=== PATIENT | female | born 1950 | race Caucasian/White ===

== ENCOUNTER → 2017-09-08 | Outpatient (CLI) | payer MEDICARE ==
--- NOTE | 2017-09-09 08:37 | MM ---
Reason for exam: screening (asymptomatic). Last mammogram was performed 1 year and 2 months ago. History: Patient is postmenopausal. Took hormonal contraceptives for 7 years. Took estrogen for 1 year. Physical Findings: A clinical breast exam by your physician is recommended on an annual basis and results should be correlated with mammographic findings. MG 3D Screening Mammo W/Cad Bilateral CC and MLO view(s) were taken. Prior study comparison: July 01, 2016, bilateral MG screening mammo w CAD. June 05, 2015, bilateral MG diagnostic mammo w CAD ABBIE. The breast tissue is almost entirely fat. Finding: There are typically benign calcifications in the right breast. No significant changes in finding since July 01, 2016 and June 05, 2015. ASSESSMENT: Benign, BI-RAD 2 RECOMMENDATION: Routine screening mammogram of both breasts in 1 year.
== END | disposition home or self-care (01) ==
LOC: RADMAMWWP 09:48
PROVIDERS: ATTEND Family Medicine
DX: Z12.31 Encounter for screening mammogram for malignant neoplasm of breast (principal)
CPT/HCPCS: 77063; G0202

== ENCOUNTER 2018-05-22 11:45 | Emergency (ER) | payer MEDICARE ==
[2018-05-22 12:27] VITALS: BP 150/81; PULSE 69; RESP 18; TEMP 98.1
[2018-05-22] MEDS ORDERED: IBUPROFEN 600 MG TAB PO STA (12:57)
--- NOTE | 2018-05-22 13:34 | XR ---
EXAMINATION TYPE: XR wrist complete LT DATE OF EXAM: 05/22/2018 COMPARISON: NONE HISTORY: 67-year-old female with pain after fall yesterday TECHNIQUE: 4 views FINDINGS: There is an intra-articular fracture extending to the radiocarpal joint involving the metaphysis and epiphysis of the distal radius. Fracture lucency is seen extending into the radioscaphoid as well as the radial lunate joint. The distal radial ulnar joint appears intact. Soft tissue swelling. No signi ficant displacement or angulation. Severe degenerative changes at the base of the thumb and triscaphe joint. Corticated ossific density just beyond the ulnar styloid process could represent accessory os sicle or sequela of remote injury. IMPRESSION: 1. Nondisplaced fracture of the distal radial metaphysis and epiphysis with fracture extension into t he radiocarpal joint. No significant articular surface incongruity. 2. Severe degenerative changes at the base of the thumb.
--- NOTE | 2018-05-22 13:35 | ED ---
Fall HPI - General Chief Complaint: Fall Stated Complaint: Fall Time Seen by Provider: 05/22/18 12:47 Source: patient Mode of arrival: ambulatory - History of Present Illness Initial Comments: This is a 67-year-old female with past medical history of type 2 diabetes and hypothyroidism who presents to emergency department today for chief complaint of left wrist pain patient states that around 10 PM last night she was going down her side steps of her house going to the shed she misstepped falling forward catching herself with her left hand, she denies any chest pain, shortness of breath or palpitations prior to the fall and states that this is mechanical, or any other injury during the fall. She immediately complained of left wrist pain. The pain was localized to the left wrist, constant and sharp in nature without radiation. Pt denied numbness, tingling or loss of sensation or obvious deformity. Patient states that in addition there was minimal swelling. She applied ice the area and took Motrin for pain management. She thought that the pain would go away in the morning but when patient woke up this morning with constant pain in her left wrist she had her bring her to the emergency department. Upon arrival patient's vital signs were within normal limits. 2 through 5. A full sensation of the left hand wrist. - Related Data Home Medications Medication Instructions Recorded Confirmed Aspirin 1 tab PO DAILY 04/17/14 11/06/14 Carvedilol 25 mg PO DAILY 04/17/14 11/06/14 Carvedilol [Coreg] 25 mg PO BID 04/17/14 11/06/14 Cholecalciferol [Vitamin D3] 1 tab PO DAILY 04/17/14 11/06/14 Levothyroxine Sodium [Synthroid] 1 mg PO DAILY 04/17/14 11/06/14 Losartan/Hydrochlorothiazide 1 each PO DAILY 04/17/14 11/06/14 [Hyzaar 100-12.5 Tablet] Simvastatin [Zocor] 40 mg PO HS 04/17/14 11/06/14 glipiZIDE XL [Glucotrol XL] 5 mg PO DAILY 04/17/14 11/06/14 metFORMIN HCL [Glucophage] 1,000 mg PO BID 04/17/14 11/06/14 Previous Rx's Medication Instructions Recorded Docusate [Colace] 100 mg PO DAILY #30 capsule 11/06/14 Hydrocodone/Acetaminophen [Hagerman 1 each PO Q4HR PRN #20 tablet 11/06/14 10-325 Tablet] Ibuprofen 600 mg PO Q6H 5 Days #20 tablet 05/22/18 Allergies Allergy/AdvReac Type Severity Reaction Status Date / Time Penicillins Allergy Rash/Hives Verified 05/22/18 12:27 Review of Systems ROS Statement: Those systems with pertinent positive or pertinent negative responses have been documented in the HPI. ROS Other: All systems not noted in ROS Statement are negative. Past Medical History Past Medical History: Diabetes Mellitus History of Any Multi-Drug Resistant Organisms: None Reported Past Surgical History: Orthopedic Surgery Past Psychological History: No Psychological Hx Reported Smoking Status: Former smoker Past Alcohol Use History: Occasional Past Drug Use History: None Reported General Exam - General Exam Comments Initial Comments: General: The patient is awake and alert, in no distress, and does not appear acutely ill. Neck: The neck is supple, there is no tenderness or JVD. Cardiovascular: There is a regular rate and rhythm. No murmur, rub or gallop is appreciated. Respiratory: Lungs are clear to auscultation, respirations are non-labored, breath sounds are equal. No wheezes, stridor, rales, or rhonchi. Musculoskeletal: inspection of the left wrist reveals no swelling, no obvious defect or erythema. Tenderness to patient over the carpals of left hand. Patient unable to flex, extend, pronate, supinate the left wrist. Full range of motion of the fingers full range of motion to the elbow and shoulder on the left side. Full sensation of the left upper extremity. Able to make the okay sign, fingers crossed and transpose thumb to the remaining phalanges. +2 radial pulses b/l. Capillary refill <2seconds. Neurological: A&O x 3. CN II-XII intact, There are no obvious motor or sensory deficits. Coordination appears grossly intact. Speech is normal. Skin: Skin is warm and dry and no rashes or lesions are noted. Psychiatric: Normal mood and affect. Limitations: no limitations Course Vital Signs 05/22/18 12:24 Temperature 98.1 F Pulse Rate 69 Respiratory 18 Rate Blood Pressure 150/81 O2 Sat by Pulse 96 Oximetry Procedures - Orthopedic Splinting/Casting Injury #1 Upper Extremity Injury Location: wrist Upper Extremity Immobilizer: wrist splint, Murphy wrap, synthetic pre-padded splint Other Orthopedic Equipment: other (Sling) Medical Decision Making - Medical Decision Making Patient is a 67-year-old female with past medical history of type 2 diabetes and hypothyroidism who presents today for chief complaint wrist pain after falling last night around 10 PM. Patient was walking down the side effects were home when she tripped over the last 2 steps falling on her left outstretched hand. Patient denies hitting her head, loss of consciousness or trauma to any other part of the body. Patient denies any chest pain dizziness confusion or palpitations prior to falling down stairs and states that this is mechanical fall. Patient didn't think that she "broke her wrist due to minimal swelling at that time, she attempted to take Motrin for pain management and ice the wrist. When she woke up this morning and the pain was still constant localized to the left wrist and there was some swelling she had her take her to emergency Department. Upon arrival to emergency department patient' s vital signs are stable. Initial physical exam was performed left wrist there is some mild swelling, no ecchymosis or erythema overlying the joint. No abrasions or lesions. There is tenderness to the patient over the carpal joint. Patient is unable to pronate and supinate flex or extend the left wrist. Full range of motion of the left elbow shoulder and fingers. Cap refill less than 2 seconds of the upper extremities bilaterally, +2 radial pulses bilaterally. Sensation intact of the upper extremities bilaterally. Ulnar, radial, median nerve intact of the upper extremities bilaterally. X-ray of the left wrist was obtained. Revealing a nondisplaced fracture of the distal metaphysis and epiphysis of the radius with fracture extending into the radiocarpal joint. The patient was put into a splint, and given ibuprofen 600 for pain management. Neurovascular exam unchanged post splinting. Patient was given sling. I discussed the case with who agreed with the plan of discharging patient with a prescription for ibuprofen 600 every 6 hours for pain as needed as well as [facility] within 1-2 days. Patient was instructed to return to emergency department if symptoms worsen. Disposition Clinical Impression: Distal radius fracture, left Disposition: HOME SELF-CARE Condition: Good Instructions: Wrist Fracture in Adults (ED) Additional Instructions: Please use medication as discussed. Please [facility]-up with [facility] in the next 1-2 days. Please return to emergency room if the symptoms increase or worsen or for any other concerns. Prescriptions: Ibuprofen 600 mg PO Q6H 5 Days #20 tablet Is patient prescribed a controlled substance at d/c from ED?: No Referrals: Donna Choi MD [Primary Care Provider] - 1-2 days Cara Nam PAC [PHYSICIAN FRUIT COORDINATOR] - 1-2 days Time of Disposition: 14:08
== END 2018-05-22 14:17 | disposition home or self-care (01) ==
LOC: EC 11:45
DX: S52.592A Other fractures of lower end of left radius, initial encounter for closed fracture (principal); E11.9 Type 2 diabetes mellitus without complications; E03.9 Hypothyroidism, unspecified; Z87.891 Personal history of nicotine dependence; Z79.82 Long term (current) use of aspirin; Z79.84 Long term (current) use of oral hypoglycemic drugs; Z79.899 Other long term (current) drug therapy; Z88.0 Allergy status to penicillin; W10.9XXA Fall (on) (from) unspecified stairs and steps, initial encounter; Y93.01 Activity, walking, marching and hiking; Y92.009 Unspecified place in unspecified non-institutional (private) residence as the place of occurrence of the external cause
CPT/HCPCS: 29125; 99283

== ENCOUNTER → 2018-06-09 | Outpatient (CLI) | payer MEDICARE ==
--- NOTE | 2018-06-09 10:30 | BD ---
EXAMINATION TYPE: Axial Bone Density DATE OF EXAM: 06/09/2018 COMPARISON: NONE CLINICAL HISTORY: screening Height: 5'6 1/2 Weight: 210 FRAX RISK QUESTIONS: History of Fracture in Adulthood: y Secondary Osteoporosis: RISK FACTORS HISTORY OF: History of Wrist Fracture: left When: 2018 Diet low in dairy products/other sources of calcium: y Postmenopausal woman: y MEDICATIONS: Thyroid Medications: Which medication: Synthroid How Lon years Additional Medications: cholesterol, blood pressure, type 2 diabetes Additional History: radioactive iodine to thyroid 15 years ago hypothyroid EXAM MEASUREMENTS: Bone mineral densitometry was performed using the [employer] System. Bone mineral density as measured about the Lumbar spine is: ----- L1-L4(G/cm2): 1.111 T Score Values are as follows: ----- L2: -1.9 ----- L3: 0.5 ----- L4: 0.1 ----- L1-L4: -0.6 Bone mineral density about the R hip (g/cm2): 0.822 Bone mineral density about the L hip (g/cm2): 0.935 T Score values are as follows: -----R Neck: -1.6 -----L Neck: -0.7 -----R Total: -0.2 -----L Total: -0.2 IMPRESSION: Osteopenia (T Score between -2.5 and -1) at the femoral neck level in right hip and at 2 consecutive levels in the upper lumbar spine. There is slightly increased risk of fracture and the patient may be considered for treatment. Re-Screen 2-5 years. NOTE: T-SCORE=SD OF THE YOUNG ADULT MEAN.
== END ==
LOC: RADBDWWP 09:14
PROVIDERS: ATTEND Family Medicine
DX: M85.851 Other specified disorders of bone density and structure, right thigh (principal); M85.88 Other specified disorders of bone density and structure, other site
CPT/HCPCS: 77080

== ENCOUNTER → 2018-09-24 | Outpatient (CLI) | payer MEDICARE ==
--- NOTE | 2018-09-25 14:17 | MM ---
Reason for exam: screening (asymptomatic). Last mammogram was performed 1 year and 1 month ago. History: Patient is postmenopausal. Took hormonal contraceptives for 7 years. Took estrogen for 1 year. Physical Findings: A clinical breast exam by your physician is recommended on an annual basis and results should be correlated with mammographic findings. MG 3D Screening Mammo W/Cad Bilateral CC and MLO view(s) were taken. Prior study comparison: September 08, 2017, bilateral MG 3d screening mammo w/cad. July 01, 2016, bilateral MG screening mammo w CAD. The breast tissue is almost entirely fat. No significant changes when compared with prior studies. ASSESSMENT: Benign, BI-RAD 2 RECOMMENDATION: Routine screening mammogram of both breasts in 1 year.
== END | disposition home or self-care (01) ==
LOC: RADMAMWWP 10:45
PROVIDERS: ATTEND Family Medicine
DX: Z12.31 Encounter for screening mammogram for malignant neoplasm of breast (principal)
CPT/HCPCS: 77063; 77067

== ENCOUNTER → 2019-12-01 | Outpatient (CLI) | payer MEDICARE ==
--- NOTE | 2019-12-02 11:17 | MM ---
Reason for exam: screening (asymptomatic). Last mammogram was performed 1 year and 2 months ago. History: Patient is postmenopausal. Took hormonal contraceptives for 7 years. Took estrogen for 1 year. Physical Findings: A clinical breast exam by your physician is recommended on an annual basis and results should be correlated with mammographic findings. MG 3D Screening Mammo W/Cad Bilateral CC and MLO view(s) were taken. Prior study comparison: September 24, 2018, bilateral MG 3d screening mammo w/cad. September 08, 2017, bilateral MG 3d screening mammo w/cad. There are scattered fibroglandular densities. Benign appearing calcifications in the right breast. There is no discrete abnormality. No significant changes when compared with prior studies. ASSESSMENT: Benign, BI-RAD 2 RECOMMENDATION: Routine screening mammogram of both breasts in 1 year.
== END | disposition home or self-care (01) ==
LOC: RADMAMWWP 13:17
PROVIDERS: ATTEND Family Medicine
DX: Z12.31 Encounter for screening mammogram for malignant neoplasm of breast (principal)
CPT/HCPCS: 77063; 77067

== ENCOUNTER 2020-01-24 07:28 | Day surgery (SDC) | payer MEDICARE ==
[2020-01-19 11:33] VITALS: BMI 31.3
[~2020-01-24 07:28] MED LIST: LACTATED RINGERS 1,000 ML IV SCH; LIDOCAINE 1% (10MG/ML) FOR IV START INTRADERMA PRN
[2020-01-24 07:40] VITALS: TEMP 96.4
[2020-01-24 07:54] LABS: Glucose,Whole Blood 183 mg/dL (75-99)
[2020-01-24] MEDS ORDERED: LIDOCAINE 1% (10MG/ML) FOR IV START INTRADERMA ONE (07:55)
[2020-01-24] MEDS ORDERED: PROPOFOL 10 MG/ML 20 ML VIAL IV ONE (08:12)
--- NOTE | 2020-01-24 08:49 | P.PCN ---
Date of Procedure: 01/24/20 Description of Procedure: BRIEF HISTORY: Patient is a 69-year-old female presenting for outpatient colonoscopy for screening for malignant neoplasm of the colon. She denies any change in bowel habits, blood per rectum, or abdominal pain. Last colonoscopy 6-7 years ago per her recollection. PROCEDURE PERFORMED: Colonoscopy with polypectomy. PREOPERATIVE DIAGNOSIS: Screening for malignant neoplasm of the colon, last colonoscopy 6-7 years ago per her recollection, she does report a prior history of colon polyps. ESTIMATED BLOOD LOSS: Minimal. IV sedation per Anesthesia. PROCEDURE: After informed consent was obtained, the patient, was brought into the endoscopy unit. IV sedation was administered by Anesthesia under continuous monitoring. Digital rectal examination was normal, with nonthrombosed external hemorrhoids noted. Initially the Olympus CF-190 flexible video colonoscope was then inserted in the rectum, gradually advanced into the cecum without any difficulty. Careful examination was performed as the scope was gradually being withdrawn. Ileocecal valve and the appendiceal orifice were visualized and appeared normal. Prep was excellent. Mucosa of the cecum, ascending colon, transverse colon, descending colon, sigmoid colon, and rectum appeared normal. Multiple small mouth diverticula noted in the sigmoid colon. Diminutive 2 mm ascending colon polyp removed with cold forcep polypectomy. Diminutive 2 mm sigmoid colon polyp removed with cold forcep polypectomy. Retroflexion was performed in the rectum and no lesions were seen, low-grade internal hemorrhoids noted. The patient tolerated the procedure well. IMPRESSION: 2 diminutive polyps removed from the sigmoid colon and descending colon with cold forcep polypectomy. Mild sigmoid diverticulosis. RECOMMENDATIONS: Findings of this examination were discussed with the patient and her . Okay to resume diet. Okay to resume medications. Await pathology from polypectomies. Would recommend repeat colonoscopy in 7 years for colon polyps pending pathology from polypectomies.
[2020-01-24 08:53] VITALS: PULSE 70; RESP 16
[2020-01-24 09:05] VITALS: BP 145/92
== END 2020-01-24 09:30 | disposition home or self-care (01) ==
LOC: ORWHC2ENDO 07:28
PROVIDERS: ATTEND Internal Medicine
DX: Z12.11 Encounter for screening for malignant neoplasm of colon (principal); D12.2 Benign neoplasm of ascending colon; K63.5 Polyp of colon; K57.30 Diverticulosis of large intestine without perforation or abscess without bleeding; K64.4 Residual hemorrhoidal skin tags; K64.8 Other hemorrhoids; I10 Essential (primary) hypertension; E11.9 Type 2 diabetes mellitus without complications; K21.9 Gastro-esophageal reflux disease without esophagitis; Z88.0 Allergy status to penicillin; Z79.84 Long term (current) use of oral hypoglycemic drugs; Z79.890 Hormone replacement therapy; Z79.899 Other long term (current) drug therapy; Z86.010 Personal history of colon polyps; Z87.891 Personal history of nicotine dependence; Z98.51 Tubal ligation status; Z98.890 Other specified postprocedural states
CPT/HCPCS: 88305; 45380; J2704

== ENCOUNTER → 2020-07-07 | Outpatient (CLI) | payer MEDICARE ==
--- NOTE | 2020-07-07 11:57 | ECHOF ---
Referral Reason:I10 Hypertension MEASUREMENTS -------- HEIGHT: 165.1 cm WEIGHT: 93.0 kg BP: RVIDd: 1.8 cm (< 3.3) IVSd: 1.1 cm (0.6 - 1.1) LVIDd: 3.5 cm (3.9 - 5.3) LVPWd: 1.3 cm (0.6 - 1.1) IVSs: 1.6 cm LVIDs: 2.1 cm LVPWs: 1.6 cm Ao Diam: 3.0 cm (2.0 - 3.7) AV Cusp: 2.0 cm (1.5 - 2.6) LA Diam: 3.0 cm (2.7 - 3.8) MV EXCURSION: 17.007 mm (> 18.000) MV EF SLOPE: 60 mm/s (70 - 150) EPSS: 1.0 cm MV E [place]: 0.56 m/s MV DecT: 187 ms MV A [place]: 1.05 m/s MV E/A Ratio: 0.54 RAP: 5.00 mmHg RVSP: 12.23 mmHg FINDINGS -------- This was a technically good study. The left ventricular size is normal. Left ventricular wall thickness is normal. Overall left vent ricular systolic function is normal with, an EF between 55 - 60 %. The diastolic filling pattern is normal for the age of the patient 12.55. The right ventricle is normal in size. The left atrial size is normal. The right atrial size is normal. Interatrial and interventricular septum intact. The aortic valve is trileaflet and appears structurally normal. The mitral valve is normal. There is trace mitral regurgitation. The tricuspid valve appears structurally normal. Trace tricuspid regurgitation present. Right sarah tricular systolic pressure is normal at < 35 mmHg. There is no pulmonic regurgitation present. The aortic root size is normal. Normal inferior vena cava with normal inspiratory collapse consistent with estimated right atrial pre ssure of 5 mmHg. There is no pericardial effusion. CONCLUSIONS -------- 1. The left ventricular size is normal. 2. Left ventricular wall thickness is normal. 3. Overall left ventricular systolic function is normal with, an EF between 55 - 60 %. 4. The diastolic filling pattern is normal for the age of the patient 12.55 5. There is trace mitral regurgitation. 6. Trace tricuspid regurgitation present. WATER RESOURCE CONSULTANT: Cary Ballard RDCS
--- NOTE | 2020-07-07 18:42 | BD ---
EXAMINATION TYPE: Axial Bone Density DATE OF EXAM: 07/07/2020 COMPARISON: 06.09.2018 CLINICAL HISTORY: 69 YR OLD FEMALE ......ICD-10 CODE: M85.9 DISORDER OF BONE Height: 64.6 Weight: 205 FRAX RISK QUESTIONS: History of Fracture in Adulthood: YES RISK FACTORS HISTORY OF: HX OF LT ANKLE FRACTURE AFTER AGE 51 History of Wrist Fracture: LT WRIST 2 YRS AGO Postmenopausal woman: YES AT AGE 51 Lost more than 2 inches in height since high school: YES Hyperparathyroidism: NO Adrenal Insufficiency: NO MEDICATIONS: Thyroid Medications: YES, SYNTHROID FOR ABOUT 15+ YRS Additional Medications: BP MEDS, METFORMIN, REFLUX, STATIN FOR CHOLESTEROL, VIT D Additional History: HYPERTENSION, REFLUX, CHOLESTEROL, DIABETIC, OSTEOARTHRITIS EXAM MEASUREMENTS: Bone mineral densitometry was performed using the [employer] System. Bone mineral density as measured about the Lumbar spine is: ----- L1-L4(G/cm2): 1.157 T Score Values are as follows: ----- L1: -1.3 ----- L2: -1.1 ----- L3: 0.3 ----- L4: 0.9 ----- L1-L4: -0.2 Bone mineral density has: Increased 4.6% SINCE 06.09.2018 STUDY Bone mineral density about the R hip (g/cm2): 0.948 Bone mineral density about the L hip (g/cm2): 1.010 T Score values are as follows: -----R Neck: -1.2 -----L Neck: -1.1 -----R Total: -0.5 -----L Total: 0.0 Bone mineral density has: Decreased -0.4% SINCE 06.09.2018 STUDY FRAX%s: THERE IS A 13.8% CHANCE FOR A MAJOR OSTEOPOROTIC FX AND A 1.4% FOR HIP.....PROBABILITY FOR FX IN 10YRS TIME IMPRESSION: Osteopenia (T Score between -2.5 and -1). There is slightly increased risk of fracture and the patient may be considered for treatment. Re-Screen 2-5 years. NOTE: T-SCORE=SD OF THE YOUNG ADULT MEAN.
== END | disposition home or self-care (01) ==
LOC: RADBDWWP 09:47
PROVIDERS: ATTEND Family Medicine
DX: M85.80 Other specified disorders of bone density and structure, unspecified site (principal); I10 Essential (primary) hypertension; E11.9 Type 2 diabetes mellitus without complications; I08.1 Rheumatic disorders of both mitral and tricuspid valves; Z72.0 Tobacco use
CPT/HCPCS: 77080; 93306

== ENCOUNTER 2020-10-20 15:34 | Emergency (ER) | payer MEDICARE ==
[2020-10-20 15:45] VITALS: RESP 18
[2020-10-20 16:14] LABS: Basophils # (A) 0.1 k/uL (0-0.2); Basophils % (A) 1 %; Eosinophils % (A) 0 %; HCT 39.7 % (34.0-46.0); HGB 13.5 gm/dL (11.4-16.0); Lymphocytes # (A) 0.9 k/uL (1.0-4.8); Lymphocytes % (A) 15 %; MCH 29.2 pg (25.0-35.0); MCHC 34.1 g/dL (31.0-37.0); MCV 85.7 fL (80.0-100.0); Mean Platelet Volume 7.9; Monocytes # (A) 0.3 k/uL (0-1.0); Monocytes % (A) 5 %; Neutrophils # (A) 4.8 k/uL (1.3-7.7); Neutrophils % (A) 78 %; Platelet Count 188 k/uL (150-450); RBC 4.64 m/uL (3.80-5.40); RDW 12.8 % (11.5-15.5); WBC 6.2 k/uL (3.8-10.6)
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
[2020-10-20 16:27] LABS: Ionized Calcium 4.7 mg/dL (4.5-5.3)
[2020-10-20 16:34] LABS: Albumin 3.8 g/dL (3.5-5.0); INR 0.9 (<1.2); Partial Thromboplastin Time 22.7 sec (22.0-30.0); Potassium 4.6 mmol/L (3.5-5.1); Prothrombin Time 9.6 sec (9.0-12.0); Total Bilirubin 0.8 mg/dL (0.2-1.3); Total Protein 7.1 g/dL (6.3-8.2)
--- NOTE | 2020-10-20 16:53 | XR ---
EXAMINATION TYPE: XR chest 1V portable DATE OF EXAM: 10/20/2020 COMPARISON: 04/17/2014 HISTORY: Short of breath TECHNIQUE: FINDINGS: There is some mild infiltrate and atelectasis at the left lung base. There is no heart fail ure. Heart size is normal. There are no hilar masses. Heart is shifted slightly to the left side. Bon y thorax is intact. IMPRESSION: There is some mild infiltrate and atelectasis at the left lung base that is new compared to old exam. Normal heart.
[2020-10-20 17:31] VITALS: BP 111/60; PULSE 76; TEMP 98.3
== END 2020-10-20 17:35 | disposition home or self-care (01) ==
LOC: EC 15:34
DX: U07.1 COVID-19 (principal); E11.9 Type 2 diabetes mellitus without complications; I10 Essential (primary) hypertension; E07.9 Disorder of thyroid, unspecified; E78.5 Hyperlipidemia, unspecified; J98.11 Atelectasis; K21.9 Gastro-esophageal reflux disease without esophagitis; Z79.82 Long term (current) use of aspirin; Z79.02 Long term (current) use of antithrombotics/antiplatelets; Z79.890 Hormone replacement therapy; Z79.84 Long term (current) use of oral hypoglycemic drugs; Z79.899 Other long term (current) drug therapy; Z88.0 Allergy status to penicillin
CPT/HCPCS: 36415; 71045; 80053; 82330; 83605; 83880; 84484; 85025; 85610; 85730; 87635; 99285

== ENCOUNTER 2020-11-04 17:08 | Emergency (ER) | payer MEDICARE ==
[2020-11-04 17:13] VITALS: RESP 16; TEMP 97.8
[2020-11-04] MEDS ORDERED: LIDOCAINE 1% INJ 10MG/ML (20 ML MDV) SQ ONE (17:27)
[2020-11-04] MEDS ORDERED: DIPH,PERTUS(ACELL)TETVAC-LF 0.5 ML VIAL IM ONE (17:27)
[2020-11-04] MEDS ORDERED: ACET/COD 300 MG/30 MG STARTER PACK 6 TAB BTL PO STA (17:28)
--- NOTE | 2020-11-04 18:01 | XR ---
RESULT: HISTORY: fall, anterior pain TECHNIQUE: 3 views of the left knee were obtained. COMPARISON: None. FINDINGS: There is no acute fracture or dislocation. There is mild tricompartmental osteoarthritis. No knee natasha nt effusion. IMPRESSION: No acute osseous abnormality.
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
[2020-11-04] MEDS ORDERED: BACITRACIN OINT 1 EACH PACKET TOPICAL ONE (18:18)
[2020-11-04] MEDS ORDERED: CEPHALEXIN 500MG STARTER PACK 4 CAP BTL PO STA (18:19)
[2020-11-04 18:48] VITALS: BP 105/67; PULSE 87
== END 2020-11-04 18:48 | disposition home or self-care (01) ==
LOC: EC 17:08
DX: S61.411A Laceration without foreign body of right hand, initial encounter (principal); S80.02XA Contusion of left knee, initial encounter; M25.522 Pain in left elbow; E11.9 Type 2 diabetes mellitus without complications; K21.9 Gastro-esophageal reflux disease without esophagitis; E78.5 Hyperlipidemia, unspecified; I10 Essential (primary) hypertension; E07.9 Disorder of thyroid, unspecified; Z79.84 Long term (current) use of oral hypoglycemic drugs; Z79.82 Long term (current) use of aspirin; Z79.899 Other long term (current) drug therapy; Z79.890 Hormone replacement therapy; Z88.0 Allergy status to penicillin; W26.8XXA Contact with other sharp object(s), not elsewhere classified, initial encounter
CPT/HCPCS: 73562; 90715; 90471; 12001; 99283; J2001

== ENCOUNTER → 2021-02-12 | Outpatient (CLI) | payer MEDICARE ==
[2021-02-12 19:46] LABS: Hemoglobin A1C 6.8 % (4.0-6.0)
[2021-02-12 20:44] LABS: African American GFR (CKD) 102.5 (60.0-200.0); Albumin 4.4 g/dL (3.80-4.90); Albumin/Globulin Ratio 1.91 (1.60-3.17); Anion Gap 11.6 mmol/L (4.00-12.00); BUN/Creat Ratio 17.14 Ratio (12.00-20.00); Calcium 9.3 mg/dL (8.7-10.3); Carbon Dioxide 26.4 mmol/L (21.6-31.8); Chol/HDL Ratio 3.95; Globulin 2.3 g/dL (1.6-3.3); LDL Cholesterol,Calculated 103.6 mg/dL (0.0-131.0); Non-African American GFR(CKD) 88.4 (60.0-200.0); Potassium 4.5 mmol/L (3.5-5.5); Total Bilirubin 0.5 mg/dL (0.3-1.2); Total Protein 6.7 g/dL (6.2-8.2); VLDL Calculation 23.4 mg/dL (5.00-40.00)
[2021-02-13 03:35] LABS: Urine Creatinine 48.6 mg/dL
== END | disposition home or self-care (01) ==
LOC: LABWHC1 12:18
PROVIDERS: ATTEND Internal Medicine Endocrinology, Diabetes & Metabolism
DX: E11.9 Type 2 diabetes mellitus without complications (principal)
CPT/HCPCS: 36415; 80053; 80061; 82043; 82570; 83036; 84443

== ENCOUNTER → 2021-10-09 | Outpatient (CLI) | payer MEDICARE ==
--- NOTE | 2021-10-10 11:09 | MM ---
Reason for exam: screening (asymptomatic). Last mammogram was performed 1 year and 10 months ago. History: Patient is postmenopausal. Took hormonal contraceptives for 7 years. Took estrogen for 1 year. Physical Findings: A clinical breast exam by your physician is recommended on an annual basis and results should be correlated with mammographic findings. MG 3D Screening Mammo W/Cad Bilateral CC and MLO view(s) were taken. Prior study comparison: December 01, 2019, bilateral MG 3d screening mammo w/cad. September 24, 2018, bilateral MG 3d screening mammo w/cad. There are scattered fibroglandular densities. There are benign appearing round dystrophic calcifications bilaterally. There is chronic nodularity in the right breast. There is no discrete abnormality. ASSESSMENT: Benign, BI-RAD 2 RECOMMENDATION: Routine screening mammogram of both breasts in 1 year.
== END | disposition home or self-care (01) ==
LOC: RADMAMWWP 10:51
PROVIDERS: ATTEND Family Medicine
DX: Z12.31 Encounter for screening mammogram for malignant neoplasm of breast (principal)
CPT/HCPCS: 77063; 77067

== ENCOUNTER → 2023-10-10 | Outpatient (CLI) | payer MEDICARE ==
--- NOTE | 2023-10-10 13:33 | BD ---
EXAMINATION TYPE: Axial Bone Density DATE OF EXAM: 10/10/2023 CLINICAL HISTORY: 73 years old Female. ICD-10 CODE: Z780 [place] Height: 65.25 Weight: 189 FRAX RISK QUESTIONS: Family History (Parent hip fracture): no History of Fracture in Adulthood: yes , lt wrist @69 lt ankle @51 Secondary Osteoporosis: no Rheumatoid Arthritis: no RISK FACTORS HISTORY OF: History of Wrist Fracture: yes, lt When: @69 Family History of Osteoporosis: no Active: yes Diet low in dairy products/other sources of calcium: yes Postmenopausal woman: yes, 51 Lost more than 2 inches in height since high school: yes was 69 Frequent falls: no Poor Health: no MEDICATIONS: Thyroid Medications: yes Which medication: Synthroid How Lon+ years Additional Medications: yes hbp meds, diabetic meds, thyroid med, reflux meds EXAM MEASUREMENTS: Bone mineral densitometry was performed using the M2M Solution System. Bone mineral density as measured about the Lumbar spine is: ----- L1-L4(G/cm2): 1.121 T Score Values are as follows: ----- L1: -1.2 ----- L2: -1.7 ----- L3: 0.7 ----- L4: -0.2 ----- L1-L4: -0.5 Z Score Values are as follows: ----- L1: -0.2 ----- L2: -0.7 ----- L3: 1.7 ----- L4: 0.8 ----- L1-L4: 0.5 Bone mineral density has: Decreased -3.1% since study of: 07/07/2020 Bone mineral density about the R hip (g/cm2): 0.927 Bone mineral density about the L hip (g/cm2): 0.928 T Score values are as follows: -----R Neck: -1.6 -----L Neck: -1.2 -----R Total: -0.6 -----L Total: -0.6 Z Score values are as follows: -----R Neck: -0.3 -----L Neck: 0.2 -----R Total: 0.4 -----L Total: 0.4 Bone mineral density has: Decreased -5.3% since study of: 07/07/2020 FRAX%s: The graph provided illustrates a 16.4% chance for a major osteoporotic fx and a 2.7% chance f or the hips probability for fx in 10 years time. IMPRESSION: Osteopenia (T Score between -2.5 and -1). There is slightly increased risk of fracture and the patient may be considered for treatment. Re-Screen 2-5 years. NOTE: T-SCORE=SD OF THE YOUNG ADULT MEAN.
--- NOTE | 2023-10-13 08:45 | MM ---
Reason for Exam: Screening (asymptomatic). Last mammogram was performed 2 year(s) and 0 month(s) ago. Patient History: Menarche at age 14. First Full-Term at age 19. Postmenopausal. Patient used Estrogen for 1 year. Patient used Hormonal Contraceptives for 7 years. Daughter had breast cancer at or over age 50. Risk Values: Meli 5 year model risk: 3.3%. NCI Lifetime model risk: 8.4%. Prior Study Comparison: 09/24/2018 Bilateral Screening Mammogram, [facility]. 12/01/2019 Bilateral Screening Mammogram, [facility]. 10/09/2021 Bilateral Screening Mammogram, [facility]. Tissue Density: The breast tissue is almost entirely fat. Findings: Analyzed By CAD. There is no suspicious group of microcalcifications or new suspicious mass in either breast. Overall Assessment: Negative, BI-RAD 1 Management: Screening Mammogram of both breasts in 1 year. . Patient should continue monthly self-breast exams. A clinical breast exam by your physician is recommended on an annual basis. This exam should not preclude additional follow-up of suspicious palpable abnormalities. Note on Meli scores and lifetime risk: 1. A Meli score greater than 3% is considered moderate risk. If this is the case, consider specialist referral to assess eligibility for a risk reducing agent. 2. If overall lifetime risk for the development of breast cancer is 20% or higher, the patient may qualify for future screening with alternating mammogram and breast MRI. Electronically signed and approved by: Santino Juarez M.D. Radiologis
== END | disposition home or self-care (01) ==
LOC: RADMAMWWP 10:05
PROVIDERS: ATTEND Family Medicine
DX: Z12.31 Encounter for screening mammogram for malignant neoplasm of breast (principal); M85.89 Other specified disorders of bone density and structure, multiple sites; Z78.0 Asymptomatic menopausal state; Z80.3 Family history of malignant neoplasm of breast
CPT/HCPCS: 77063; 77067; 77080

== ENCOUNTER → 2024-02-27 | Outpatient (CLI) | payer MEDICARE ==
--- NOTE | 2024-03-01 09:50 | MR ---
EXAMINATION TYPE: MR cervical spine wo con DATE OF EXAM: 02/27/2024 11:37 AM CLINICAL INDICATION:Female, 73 years old with history of M54.2 M79.601 M54.12; PHH, Neck pain, headac hes, RUE weakness. COMPARISON: None. TECHNIQUE: Multi planar, multi sequence imaging was performed utilizing: T1-weighted, T2-weighted, an d turbo inversion recovery imaging of the cervical spine. IV Contrast: cc (none if empty) FINDINGS: Alignment: The cervical vertebral bodies have preserved heights. Slight grade 1 anterolisthesis of C3 on C4. Bones: Bone signal is within normal limits. No abnormal bone marrow edema on inversion recovery seque nces. Cord: The spinal cord is unremarkable with regards to their signal intensity and morphology. Discs: Intervertebral disc signal is maintained. C2-C3: A disc osteophyte complex is present which minimally narrows the ventral subarachnoid space. Bilateral facet and uncovertebral joint arthropathy are present with mild bilateral neural foraminal stenosis. C3-C4: A disc osteophyte complex is present which minimally narrows the ventral subarachnoid space. Bilateral facet and uncovertebral joint arthropathy are present with mild to moderate right and mild left neural foraminal stenosis. C4-C5: A disc osteophyte complex is present with mild spinal canal stenosis. Bilateral facet and unc overtebral joint arthropathy are present with moderate bilateral neural foraminal stenosis. C5-C6: No significant disc pathology. The spinal canal is patent. Bilateral facet and uncovertebral joint arthropathy are present with moderate right and mild left neural foraminal stenosis. C6-C7: No significant disc pathology. The spinal canal is patent. Bilateral facet and uncovertebral joint arthropathy are present with mild to moderate bilateral neural foraminal stenosis. C7-T1: No significant disc pathology. The spinal canal is patent. No neural foraminal stenosis. Other: None. IMPRESSION: 1. No evidence for disc herniation or significant spinal canal stenosis. 2. Spinal canal stenosis worse at C4-C5 with mild Spinal canal stenosis. 3. Multilevel disc degeneration with associated osteoarthritic changes. Neural foraminal stenosis wor se at C4-C5 with moderate bilateral, , C5-C6 moderate right and C6-C7 with moderate bilateral neural foraminal stenosis. 4. Grade 1 anterolisthesis of C3 on C4.
== END | disposition home or self-care (01) ==
LOC: RADMRIMAIN 10:27
PROVIDERS: ATTEND Family Medicine
DX: M79.601 Pain in right arm (principal); M50.30 Other cervical disc degeneration, unspecified cervical region; M99.71 Connective tissue and disc stenosis of intervertebral foramina of cervical region; M54.12 Radiculopathy, cervical region; M43.12 Spondylolisthesis, cervical region
CPT/HCPCS: 72141

== ENCOUNTER → 2024-06-10 | Outpatient (CLI) | payer MEDICARE ==
[2024-06-10 12:41] VITALS: BP 121/68; PULSE 69; RESP 16
--- NOTE | 2024-06-10 14:16 | P.PAINPG ---
PQRS Measure Charge Sheet Comment: HISTORY OF PRESENT ILLNESS: A 73 yr old female w at side as a referral from [facility] presents today w severe and chronic neck pain > 6 mo secondary to DDD, spondylosis and facet arthropathy without myelopathy for evaluation. Pt states pain level is provoked at 6 /10 in intensity, constant, localized in the R lower cervical spine, predominantly axial, sharp in character w occasional shooting pain towards the R shoulder. Pain is provoked by any movement and PT x 1-2 wks in "a few months ago" which provoked pain. Pain is alleviated slightly by physician guided home stretches daily since Spring 2023, heat, medications (Celebrex), repositioning and rest . Cervical disability score at 26. PMH: OA, Diabetes Mellitus, GERD, Hyperlipidemia, HTN, Hypothyroidism PSH: Colonoscopy (2019), Tubal Ligation, R Thumb Surgery, R Eye Muscle Reattachment SH: Never smoker, Occasional ETOH use, No illicit drug use FH: Bro- [place] All: See list Meds: See list REVIEW OF ORGAN SYSTEMS: CONSTITUTIONAL: No fevers or chills. No recent weight loss. NEUROLOGICAL: + numbness and tingling along the distal extremities. No seizure disorders or headaches. MUSCULOSKELETAL: + pain PSYCHIATRIC: Denies current depression or suicidal thoughts. Physical Examinations : Constitutional : Cooperative , not in acute distress . Neurologic : Cranial nerve II to XII intact. No focal neurological deficits. Psychiatric : alert & oriented x 3. Matching mood & appropriate affect. Judgment & insight intact. Musculoskeletal : Cervical Spine Motor strength in the deltoid and biceps: Normal right side. Normal Left side Motor strength biceps and the wrist extensors: Normal right side . Normal left side Motor strength in the triceps muscle: Normal right side. Normal left side Deep tendon reflexes: Normal at the biceps. Normal at Brachioradialis. Normal at triceps Vertebral body tenderness to deep palpation over C6 Cervical facet loading test: positive R> L C4-C5, C5-C6 Spurling test: positive bilaterally Neck distraction test: positive bilaterally Chelsea sign: positive bilaterally Lumbar spine Motor strength lower extremities ,thigh and legs 5/5 Right side , 5/5 Left side Deep tendon reflexes : Normal Knee Jerk. Normal Ankle Jerk Vertebral body tenderness over Murphy Test positive Lumbar facet Loading Test: positive Right / positive Left Range of motion of the lumbar spine Flexion 30 degrees, extension 10 degrees Straight Leg Raise test: Left/ Right positive at degrees Amaya test: positive right / positive left. Severe tenderness over the Sacroiliac joint on the Right / Left sides Gaenslen test: positive bilaterally Seated flexion test: positive bilaterally. Sacral spine : Severe tenderness over the Sacroiliac joint: right side / left side Range of motion: Flexion of the lumbar spine <60 degrees Range of motion: Extension of the lumbar spine <20 degrees Gaenslen's Test positive Amaya test: positive right side / left side Thigh Thrust Test Sacral Thrust Test Imaging: MRI non contrast cervical spine from 03/18/24 reviewed Assessment/ Plan : Cervical radiculopathy Recommendation of R paramedian LO C6-C7 #1. May need a series of injections for optimal pain relief. Risks, benefits of procedure discussed and patient verbalized understanding. Admits to anti- coagulant use or medical history of diabetes. Protocol for discontinuation/ continuation of medications darrius procedure discussed. All questions answered. I have spent greater than 30 minutes on patient care today. Dr Wood was available by phone for the evaluation of this patient. The time was used to review the medical records including relevant urine studies and Prescription history (MAPs), review of the available imaging, evaluation and examination of the patient, coordination of care with the medical staff and if applicable referring physicians, as well as creation of the medical record PQRS Narrative: Smoking Status Former smoker Home Medications: Ambulatory Orders Aspirin 81 mg PO DAILY 04/17/14 Carvedilol [Coreg] 25 mg PO BID 04/17/14 Cholecalciferol [Vitamin D3] 1 tab PO DAILY 04/17/14 Simvastatin [Zocor] 40 mg PO HS 04/17/14 metFORMIN HCL [Glucophage] 1,000 mg PO BID 04/17/14 Atorvastatin [Lipitor] 40 mg PO DAILY 01/19/20 Canagliflozin [Invokana] 100 mg PO DAILY 01/19/20 Famotidine 40 mg PO DAILY 01/19/20 Levothyroxine Sodium [Synthroid] 125 mcg PO DAILY 01/19/20 Losartan-Hctz 50-12.5 mg [Hyzaar 50-12.5] 1 tab PO DAILY 01/19/20 Meclizine [Antivert] 25 mg PO DAILY PRN 01/19/20 sitaGLIPtin [Januvia] 100 mg PO DAILY 01/19/20 cephALEXin [Keflex] 500 mg PO Q6HR 7 Days #28 cap 11/04/20 Diclofenac Sodium Gel [Voltaren 1% Gel] 100 gm TOPICAL BID 30 Days #1 each 06/10/24 Controlled Substance Measures - Controlled Substance Measures Is patient prescribed a controlled substance at discharge?: No
== END ==
LOC: PNWHC3 12:19
PROVIDERS: ATTEND Specialist
DX: M47.22 Other spondylosis with radiculopathy, cervical region (principal); Z87.891 Personal history of nicotine dependence; Z88.0 Allergy status to penicillin
CPT/HCPCS: 99211

== ENCOUNTER 2024-07-08 11:00 | Day surgery (SDC) | payer MEDICARE ==
[2024-07-08] MEDS ORDERED: DEXAMETHASONE SOD PHOSPHATE 10 MG/ML 1 ML VIAL ONE (12:17)
[2024-07-08] MEDS ORDERED: ROPIVACAINE 5MG/ML 20ML VIAL ONE (12:17)
[2024-07-08] MEDS ORDERED: IOPAMIDOL M300 15ML VIAL ONE (12:17)
--- NOTE | 2024-08-26 00:01 | FL ---
EXAMINATION TYPE: FL guided pain mgmt statistic DATE OF EXAM: 07/29/2024 7:28 AM COMPARISON: Pre Operative Images if available both CT/MRI or plain film CLINICAL INDICATION: Female, 74 years old with history of RIGHT [place] [facility] [employer]; TECHNIQUE: FL guided pain mgmt statistic, multiple fluoroscopic images provided for procedure. Total fluoroscopy time: not available seconds Total submitted images to PACS 2 DAP: not available mGym2 Gycm2 uGym2 cGycm2 or equivalent. FINDINGS: IMPRESSION: 1. Report was generated for administrative purposes only. 2. Please see the operative/procedural note for further details. [facility], , 08/25/2024 11:58 PM
== END 2024-07-08 12:57 ==
LOC: ORPAIN 11:00
PROVIDERS: ATTEND Pain Medicine Interventional Pain Medicine
DX: M47.812 Spondylosis without myelopathy or radiculopathy, cervical region (principal); E11.9 Type 2 diabetes mellitus without complications; Z88.0 Allergy status to penicillin; Z79.82 Long term (current) use of aspirin; Z79.899 Other long term (current) drug therapy; Z79.1 Long term (current) use of non-steroidal anti-inflammatories (NSAID)
CPT/HCPCS: 62321

== ENCOUNTER → 2024-07-21 | Outpatient (CLI) | payer MEDICARE ==
[2024-07-21 11:27] VITALS: BP 115/79; PULSE 73; RESP 19
--- NOTE | 2024-07-21 14:05 | P.PAINPG ---
PQRS Measure Charge Sheet Comment: HISTORY OF PRESENT ILLNESS: A 73 yr old female w at side presents today w severe and chronic neck pain > 6 mo secondary to radiculopathy, spondylosis and facet arthropathy without myelopathy for evaluation s/p R paramedian LO C6-C7 #1. Pt states she experienced 20% pain relief s/p procedure. Pt states pain level is provoked at 8 /10 in intensity, constant, localized in the R lower cervical spine, predominantly axial, sharp in character without shooting pain. Pain is provoked by any movement and PT x 1-2 wks in "a few months ago" which provoked pain. Pain is alleviated slightly by physician guided home stretches daily since Spring 2023, heat, medications, repositioning and rest . Pt states she developed a post- injection reaction where the back of her neck felt like it was burning, followed by the sensation her face was burning for days, then a bitter taste in her mouth until today. Pt advised to follow up w an Asthma/ interactive media marketing specialist to determine what reaction took place. Interventional procedures include R paramedian LO C6-C7 x1 Medications include Celebrex REVIEW OF ORGAN SYSTEMS: CONSTITUTIONAL: No fevers or chills. No recent weight loss. NEUROLOGICAL: + numbness and tingling along the distal extremities. No seizure disorders or headaches. MUSCULOSKELETAL: + pain PSYCHIATRIC: Denies current depression or suicidal thoughts. Physical Examinations : Constitutional : Cooperative , not in acute distress . Neurologic : Cranial nerve II to XII intact. No focal neurological deficits. Psychiatric : alert & oriented x 3. Matching mood & appropriate affect. Judgment & insight intact. Musculoskeletal : Cervical Spine Scabbing overlying C7 region in "band-aid" shape Motor strength in the deltoid and biceps: Normal right side. Normal Left side Motor strength biceps and the wrist extensors: Normal right side . Normal left side Motor strength in the triceps muscle: Normal right side. Normal left side Deep tendon reflexes: Normal at the biceps. Normal at Brachioradialis. Normal at triceps Vertebral body tenderness to deep palpation Cervical facet loading test: positive R> L C4-C5, C5-C6 Spurling test: positive bilaterally Neck distraction test: positive bilaterally Chelsea sign: positive bilaterally Lumbar spine Motor strength lower extremities ,thigh and legs 5/5 Right side , 5/5 Left side Deep tendon reflexes : Normal Knee Jerk. Normal Ankle Jerk Vertebral body tenderness over Murphy Test positive Lumbar facet Loading Test: positive Right / positive Left Range of motion of the lumbar spine Flexion 30 degrees, extension 10 degrees Straight Leg Raise test: Left/ Right positive at degrees Amaya test: positive right / positive left. Severe tenderness over the Sacroiliac joint on the Right / Left sides Gaenslen test: positive bilaterally Seated flexion test: positive bilaterally. Sacral spine : Severe tenderness over the Sacroiliac joint: right side / left side Range of motion: Flexion of the lumbar spine <60 degrees Range of motion: Extension of the lumbar spine <20 degrees Gaenslen's Test positive Amaya test: positive right side / left side Thigh Thrust Test Sacral Thrust Test Imaging: MRI non contrast cervical spine from 03/18/24 reviewed Assessment/ Plan : Cervical radiculopathy Recommendation of PT integrated w massage x 6 wks M54.12. Disinterested in MBB trial at this time. All questions answered. I have spent greater than 30 minutes on patient care today. Dr Wood was available by phone for the evaluation of this patient. The time was used to review the medical records including relevant urine studies and Prescription history (MAPs), review of the available imaging, evaluation and examination of the patient, coordination of care with the medical staff and if applicable referring physicians, as well as creation of the medical record - Pain Location Neck Pharmacological Interventions: Epidural PQRS Narrative: Smoking Status Former smoker Hx Alcohol Use (MH) No Home Medications: Ambulatory Orders Aspirin 81 mg PO DAILY 04/17/14 Carvedilol [Coreg] 25 mg PO BID 04/17/14 Cholecalciferol [Vitamin D3] 1 tab PO DAILY 04/17/14 Simvastatin [Zocor] 40 mg PO HS 04/17/14 metFORMIN HCL [Glucophage] 1,000 mg PO BID 04/17/14 Atorvastatin [Lipitor] 40 mg PO DAILY 01/19/20 Canagliflozin [Invokana] 100 mg PO DAILY 01/19/20 Famotidine 40 mg PO DAILY 01/19/20 Levothyroxine Sodium [Synthroid] 125 mcg PO DAILY 01/19/20 Losartan-Hctz 50-12.5 mg [Hyzaar 50-12.5] 1 tab PO DAILY 01/19/20 Meclizine [Antivert] 25 mg PO DAILY PRN 01/19/20 sitaGLIPtin [Januvia] 100 mg PO DAILY 01/19/20 cephALEXin [Keflex] 500 mg PO Q6HR 7 Days #28 cap 11/04/20 Diclofenac Sodium Gel [Voltaren 1% Gel] 100 gm TOPICAL BID 30 Days #1 each 06/10/24 Controlled Substance Measures - Controlled Substance Measures Is patient prescribed a controlled substance at discharge?: No
== END ==
LOC: PNWHC3 10:48
PROVIDERS: ATTEND Specialist
DX: M54.12 Radiculopathy, cervical region
CPT/HCPCS: 99211

== ENCOUNTER → 2024-10-28 | Outpatient (CLI) | payer MEDICARE ==
--- NOTE | 2024-11-01 13:31 | MM ---
Reason for Exam: Screening (asymptomatic). Last mammogram was performed 1 year(s) and 1 month(s) ago. Patient History: Menarche at age 14. First Full-Term at age 19. Postmenopausal. Patient used Estrogen for 1 year. Patient used Hormonal Contraceptives for 7 years. Daughter had breast cancer at or over age 50. Risk Values: Meli 5 year model risk: 3.3%. NCI Lifetime model risk: 7.9%. Prior Study Comparison: 12/01/2019 Bilateral Screening Mammogram, [facility]. 10/09/2021 Bilateral Screening Mammogram, [facility]. 10/10/2023 Bilateral MG 3D screening mammo w/cad, [facility]. Tissue Density: The breasts are almost entirely fatty. Findings: Analyzed By CAD. Right breast: There is no suspicious group of microcalcifications or new suspicious mass. Benign-appearing calcifications right breast. Left breast: There is no suspicious group of microcalcifications or new suspicious mass. Benign-appearing calcifications left breast. Overall Assessment: Benign, BI-RAD 2 Management: Screening Mammogram of both breasts in [address] [facility] will attempt to contact patient to return for supplemental views and ultrasound if indicated. Patient should continue monthly self-breast exams. A clinical breast exam by your physician is recommended on an annual basis. This exam should not preclude additional follow-up of suspicious palpable abnormalities. Note on Meli scores and lifetime risk: 1. A Meli score greater than 3% is considered moderate risk. If this is the case, consider specialist referral to assess eligibility for a risk reducing agent. 2. If overall lifetime risk for the development of breast cancer is 20% or higher, the patient may qualify for future screening with alternating mammogram and breast MRI. [facility], , 11/01/2024 1:28 PM. Electronically signed and approved by: Jeyson Amaya DO
== END | disposition home or self-care (01) ==
LOC: RADMAMWWP 10:58
PROVIDERS: ATTEND Family Medicine
DX: Z12.31 Encounter for screening mammogram for malignant neoplasm of breast (principal); Z78.0 Asymptomatic menopausal state; Z80.3 Family history of malignant neoplasm of breast; R92.313 Mammographic fatty tissue density, bilateral breasts
CPT/HCPCS: 77063; 77067